=== PATIENT | female | born 1975 | race African-American/Black ===

== ENCOUNTER 2018-06-11 20:55 | Emergency (ER) | payer MEDICAID ==
[~2018-06-11] VITALS: Ht 172.7 cm; Wt 104.3 kg
[2018-06-11 22:26] VITALS: BP 156/96
[2018-06-12] MEDS ORDERED: TETANUS-DIPTH-ACEL PERTUSSIS 0.5ML SYRG IM ONE (00:15)
[2018-06-12] MEDS ORDERED: KETOROLAC TROMETH 60MG/2ML VIAL IM ONE (00:15)
[2018-06-12] MEDS ORDERED: LIDOCAINE 1% HCL (LOCAL ANESTH.) INJ 20ML MDV IJ ONE (00:15)
[2018-06-12] MEDS ORDERED: NEOMYCIN-BACITRACIN-POLYM UNITDOSE PKG TOP OINT TOP ONE (01:16)
== END 2018-06-12 01:27 | disposition home or self-care (01) ==
LOC: ER 20:57
DX: S61.011A Laceration without foreign body of right thumb without damage to nail, initial encounter (principal); G58.8 Other specified mononeuropathies; F17.210 Nicotine dependence, cigarettes, uncomplicated; W26.0XXA Contact with knife, initial encounter; Y93.89 Activity, other specified; Y99.8 Other external cause status; Y92.89 Other specified places as the place of occurrence of the external cause
CPT/HCPCS: 12001; 73140; 90471; 90715; 96372; 99283; J1885; J2001